=== PATIENT | male | born 1980 | race Caucasian/White ===

== ENCOUNTER 2016-05-19 20:13 | Emergency (ER) | payer SELFPAY ==
[~2016-05-19] VITALS: Ht 180.3 cm; Wt 79.4 kg
--- NOTE | 2016-05-19 22:23 | ED Upper Extremity ---
General Chief Complaint: Upper Extremity Stated Complaint: L WRIST INJ Nursing Triage Note: PT C/O L WRIST INJURY FROM A BASKETBALL GAME AT 1200 TODAY. Nursing Sepsis Screen: No Definite Risk Source: patient, spouse Exam Limitations: no limitations History of Present Illness Time seen by provider: 22:02 Initial Comments 36-year-old male patient presents to the emergency department complains of left wrist injury while playing basketball. Reports at noon today was running and stopped himself from running into a wall by using his hands. Now has left wrist pain. Denies numbness or tingling. Onset: this afternoon Pain/Injury Location: left wrist Method of Injury: sports injury Modifying Factors: Worse With Movement Allergies and Home Medications Allergies Coded Allergies: No Known Drug Allergies (Unverified , 05/19/16) Home Medications No Active Prescriptions or Reported Meds Constitutional: no symptoms reported Musculoskeletal: see HPINo back pain, joint pain (left wrist pain)No joint swelling, No neck pain Skin: No change in color, No lumps Psychiatric/Neurological: Denies Numbness, Denies Paresthesia, Denies Tingling , Denies Weakness All Other Systems Reviewed Negative Unless Noted: Yes (Negative excepted noted.) Past Cugybgg-Sbaswz-Skvtwo Hx Patient Social History Alcohol Use: Denies Use Recreational Drug Use: No Smoking Status: Unknown if Ever Smoked 2nd Hand Smoke Exposure: Yes Recent Foreign Travel: No Contact w/Someone Who Travel: No Recent Infectious Disease Expo: No Surgeries HX Surgeries: No Respiratory Hx Respiratory Disorders: No Cardiovascular Hx Cardiac Disorders: No Neurological Hx Neurological Disorders: No Musculoskeletal Hx Musculoskeletal Disorders: No Reviewed Nursing Assessment Reviewed/Agree w Nursing PMH: Yes Family Medical History Significant Family History: No Pertinent Family Hx Physical Exam Vital Signs Vital Sign - Last 12Hours 05/19/16 21:43 Temp 98.5 Pulse 99 Resp 18 B/P 135/68 Pulse Ox 98 O2 Delivery Room Air Capillary Refill : Less Than 3 Seconds General Appearance: WD/WN no apparent distress Cardiovascular: normal peripheral pulses Elbow/Forearm: normal inspection, non-tender, no evidence of injury, normal ROM , Left Wrist: Yes normal ROM, No asymmetry, No bone tenderness, No deformity, No ecchymosis, Yes pain (left medial wrist), Yes soft tissue tenderness (left medial wrist), Yes swelling (very slight swelling of the left medial wrist) Hand: normal inspection, non-tender, no evidence of injury, normal ROM, Left Neurologic/Tendon: normal sensation normal motor functions normal tendon functions responds to pain no evidence tendon injury Neurologic/Psychiatric: no motor/sensory deficits alert normal mood/affect oriented x 3 Skin: normal color warm/dryNo ecchymosis, tattoos/piercings Progress/Results/Core Measures Results/Orders My Orders Orders-MONICA MENDIOLA Wrist, Left, 3 Views Or More (05/19/16 20:29) Wrist-[place] (05/19/16 22:17) Tramadol Tablet (Ultram Tablet) (05/19/16 22:17) Vital Signs/I&O Vital Sign - Last 12Hours 05/19/16 05/19/16 21:43 22:37 Temp 98.5 98.5 Pulse 99 99 Resp 18 18 B/P 135/68 Pulse Ox 98 98 O2 Delivery Room Air Blood Pressure Mean: 90 Diagnostic Imaging Diagonstic Imaging: Xray Plain Films/CT/US/NM/MRI: other (left wrist) Comments no acute bony abnormality Reviewed: Reviewed/Discussed (discussed with Dr. Nava.) Departure Communication Progress Notes Diagnostic findings discussed with the patient. Proceed with discharge to home. Patient was placed in a 2 inch Chauncey wrap and universal wrist brace. Impression Impression: Primary Impression: Sprain of wrist, left Qualified Code: S63.502A - Unspecified sprain of left wrist, initial encounter Disposition: HOME, SELF-CARE Condition: Improved Departure-Patient Inst. Decision time for Depature: 22:22 Referrals: NO,LOCAL PHYSICIAN (PCP/Family) Primary Care Physician Patient Instructions: Common Wrist Injuries (DC) Add. Discharge Instructions: All discharge instructions reviewed with patient and/or family. Voiced understanding. Tylenol extra strength [id number] as directed for pain. Ibuprofen 800 mg by mouth every 8 hours as needed for pain. Elevate the left wrist on pillows. Ice pack for 20 minute intervals as needed for pain. Wrist brace as instructed. Increase activity as tolerated. Follow-up with your family practitioner if no improvement in symptoms in 7-10 days. Return to the emergency department for worsened pain, numbness, weakness, discoloration, or any other concerns. Scripts No Active Prescriptions or Reported Meds Work/School Note: Local Medical Staff Listing MONICA MENDIOLA May 19, 2016 22:23
[2016-05-19 22:37] VITALS: BP 135/68
--- NOTE | 2016-05-20 08:00 | Diagnostic Imaging Report ---
INDICATION: Basketball injury with pain. FINDINGS: Bony fragment projects dorsal to the wrist seen in the lateral view with no obvious regional swelling and measures 3.7 mm and is suspicious for triquetral avulsion, however, of uncertain acuity. The distal radius and ulna intact. Scaphoid unremarkable. The carpometacarpal joints normal. IMPRESSION: Just less than 4 mm fairly well-corticated bony density dorsal to the wrist on the lateral view suggest triquetral avulsion, however, of uncertain acuity. No other substantial finding correlate with the level of pain and if indicated followup exams may be of value. Dictated by: Dictated on workstation # [id number]
== END 2016-05-19 22:38 | disposition home or self-care (01) ==
LOC: EDUNIT# 20:13 → ER 20:16
DX: S63.502A Unspecified sprain of left wrist, initial encounter (principal); W22.01XA Walked into wall, initial encounter; Y93.67 Activity, basketball; Y92.310 Basketball court as the place of occurrence of the external cause; Y99.8 Other external cause status
CPT/HCPCS: 73110; 99283